=== PATIENT | female | born 2000 | race African-American/Black ===

== ENCOUNTER 2024-02-16 13:21 | Emergency (ER) | payer SELFPAY ==
[2024-02-16 13:23] VITALS: BP 134/75
[2024-02-16 13:30] VITALS: BMI 30.7
--- NOTE | 2024-02-16 13:47 | ED.GENMED ---
History of Present Illness
General
Chief Complaint: Skin Surface Trauma
Source: patient
Time Seen by Provider: 02/16/24 13:27
Travel History
Have you had any contact with someone who has COVID-19?: No
Do you have any symptoms of coronavirus? Fever > 100 degrees, chills, cough, shortness of breath, sore throat, loss of taste or smell, muscle aches, or headache?: No
History of Present Illness
History of Present Illness:
23-year-old female presenting emergency department for evaluation of left arm abrasions/self-injurious cutting from the last few days. Patient admits to generalized depression and states she has had some thoughts of harming herself but no specific
plan. She admits to history of similar in the past. Recently moved to this area from [place] for job. She denies any physical concerns at this time.
Past History
Past History
ED Past Medical History: None
ED Past Surgical History: None
Social History
Tobacco: Smoker
Alcohol: None
Drug: Marijuana
Personal: Single
Living: with family
Review of Systems
Review of Systems
All Other Systems: ROS reviewed and negative except as documented in HPI and ROS
Phy Exam
Physical Exam
Physical Exam:
GENERAL: Alert , in no apparent distress
EYE: conjunctiva clear
Head: Normocephalic atraumatic
NECK: Supple,
ENT: mmm.
LUNGS: no acute respiratory distress
NEUROLOGICAL: Alert and oriented
SKIN: Warm and dry, multiple superficial abrasions to the volar left forearm. No active bleeding. No secondary signs of infection
MUSCULOSKELETAL: well perfused.
PSYCH: Normal and appropriate interaction.
Scores
Heart Failure Risk
Heart Failure Risk Score: Not Applicable
Heart Score for Chest Pain Patients
STEMI patient?: Not applicable
Withdrawal Assessment of Alcohol
Withdrawal Assessment Completed?: Not applicable
Course
Orders/Labs/Results
Orders:
Orders
02/16/24 13:46
Crisis Consult Urgent
Reason for Consult: depression, self injurious behavior
Vital Signs
Initial and Last Documented VS:
Initial Vital Signs
Temp Pulse Resp BP Pulse Ox
98.4 F 98 18 134/75 98
02/16/24 13:23 02/16/24 13:23 02/16/24 13:23 02/16/24 13:23 02/16/24 13:23
Last Documented Vital Signs
Temp Pulse Resp BP Pulse Ox
98.4 F 98 18 134/75 98
02/16/24 13:23 02/16/24 13:23 02/16/24 13:23 02/16/24 13:23 02/16/24 13:23
MDM/Problems Addressed
MDM/Problems Addressed:
23-year-old female present emergency department for evaluation of left volar forearm wounds from self cutting. She admits to generalized depression with intermittent suicidal thoughts but without plan or intent. Patient does not need any suturing
but will clean wounds and place dressing. Patient will be disposition back to [facility] for ultimate disposition planning.
*Pulse Oximetry
Patient hypoxic: no
*Critical Care Note
Total Time (30-74mins, 75-104mins- exclusive of procedures): Not Applicable
ED Attending Note
-
Portions of this chart may have been created with voice recognition software.� Occasional wrong word or��sound alike� substitutions may have occurred due to the inherent limitations of voice recognition software.
Discharge Plan
Departure
Patient Disposition: [facility]
Date of Disposition: 02/16/24
Time of Disposition: 13:47
Patient with high blood pressure during this ER visit?: No
Discharge Problem:
Self-injurious behavior
Instructions: Wound Care (DC)
Interventions
Interventions:
*Risk Screen - Suicide Last Done: 02/16/24 13:23
*General Assessment Last Done: 02/16/24 13:23
*Neglect/Abuse Screening Last Done: 02/16/24 13:23
*ED COVID-19 Vaccine History Last Done: 02/16/24 13:23
ED-Skin Assessment Last Done: 02/16/24 13:30
Discharge Date and Time
Print Language: AMERICAN
--- NOTE | 2024-02-16 13:58 | EDRN ---
Cuts cleansed w/ soap and rinsed w/ water extensively then dressed w/ double antibiotic ointment, adaptic, sterile 4x4 gauze sponges then kt.
== END 2024-02-16 14:00 ==
LOC: EMR 13:21
PROVIDERS: EMERGENCY PHYSICIAN Emergency Medicine
DX: R45.88 Nonsuicidal self-harm (principal); S40.812A Abrasion of left upper arm, initial encounter; W45.8XXA Other foreign body or object entering through skin, initial encounter; F32.A Depression, unspecified; F17.200 Nicotine dependence, unspecified, uncomplicated
CPT/HCPCS: 99285